=== PATIENT | male | born 1955 | race Caucasian/White ===

== ENCOUNTER 2022-03-15 15:18 | Observation (INO) | payer OTHER ==
[2022-03-15 15:41] VITALS: BP 131/91; PULSE 122; RESP 20; TEMP 97.9; BMI 30.3
[2022-03-15] MEDS ORDERED: SODIUM CHLORIDE 0.9% 500 ML INFUS.BAG IV ONE (16:05)
[2022-03-15 17:06] LABS: BASO % 0.5 % (0-2.0); EOS % 1.4 % (0-4.5); HEMOGLOBIN 14.5 GM/dL (11.7-16.9); MCH 31.4 pg (25.7-33.7); MCHC 33.8 g/dl (32.0-35.9); MEAN CELL VOLUME 92.9 fl (80-96); MEAN PLT VOLUME 7.5 fl (7.5-11.1); MONO % 8.6 % (3.8-10.2); NEUT % 66.5 % (42.8-82.8); PLATELET COUNT 232 10^3/uL (134-434); RBC 4.63 M/mm3 (4.00-5.60); RDW 13.1 % (11.9-15.9)
[2022-03-15 17:30] LABS: CALCIUM 9.6 mg/dL (8.5-10.1)
[2022-03-15 17:31] LABS: BLOOD UREA NITROGEN 23.7 mg/dL (7-18)
[2022-03-15 17:34] LABS: CREATININE 0.9 mg/dL (0.55-1.3); PHOSPHOROUS 2.6 mg/dL (2.5-4.9)
[2022-03-15 17:35] LABS: BILIRUBIN,TOTAL 0.5 mg/dL (0.2-1); TOT PROT 6.8 g/dl (6.4-8.2)
[2022-03-15 17:37] LABS: INR 1.17 (0.83-1.09); PROTHROMBIN TIME (PATIENT) 13.5 SEC (9.7-13.0)
[2022-03-15 17:39] LABS: ACTIVATED PTT 32.6 SECONDS (25.2-36.5); N-TERMINAL BNP 460.7 pg/ml (5-125)
== END 2022-03-15 23:36 | disposition left against medical advice (07) ==
LOC: JER 15:18 → JERBED 20:26
PROVIDERS: ADMIT Internal Medicine; ATTEND Internal Medicine
PROC: 3E0337Z Introduction of Electrolytic and Water Balance Substance into Peripheral Vein, Percutaneous Approach (ICD-10-PCS; principal; 2022-03-15)
DX: R00.0 Tachycardia, unspecified (principal); R42 Dizziness and giddiness; R00.2 Palpitations; I51.7 Cardiomegaly; M54.9 Dorsalgia, unspecified
CPT/HCPCS: 0241U-QW; 36415; 71045-TC-FY; 71275-TC; 80053; 83735; 83880; 84100; 84443; 84484; 85025; 85379; 85610; 85730; 93005; 93010; 99285-25; G0378; Q9967

== ENCOUNTER 2022-04-08 10:20 | Inpatient (IN) | payer OTHER ==
[2022-04-08 10:32] VITALS: BMI 32.1
[2022-04-08] MEDS ORDERED: SODIUM CHLORIDE 0.9% 500 ML INFUS.BAG IV ONE (11:34)
[2022-04-08 12:37] LABS: URINE APPEARANCE CLEAR; URINE BILIRUBIN NEGATIVE (NEGATIVE); URINE COLOR YELLOW; URINE GLUCOSE (UA) NEGATIVE (NEGATIVE); URINE KETONE NEGATIVE (NEGATIVE); URINE LEUK ESTERASE NEGATIVE (NEGATIVE); URINE NITRITE NEGATIVE (NEGATIVE); URINE PROTEIN NEGATIVE (NEGATIVE); URINE UROBILINOGEN 0.2 mg/dL (0.2-1.0)
[2022-04-08 12:38] LABS: BASO % 0.5 % (0-2.0); EOS % 0.6 % (0-4.5); HEMATOCRIT 44.9 % (35.4-49); HEMOGLOBIN 14.9 GM/dL (11.7-16.9); LYMPH % 16.4 % (8-40); MCH 30.8 pg (25.7-33.7); MCHC 33.2 g/dl (32.0-35.9); MEAN CELL VOLUME 92.8 fl (80-96); MONO % 6.7 % (3.8-10.2); NEUT % 75.8 % (42.8-82.8); PLATELET COUNT 267 10^3/uL (134-434); RBC 4.84 M/mm3 (4.00-5.60); RDW 13.3 % (11.9-15.9); WHITE BLOOD COUNT 8.7 K/mm3 (4.0-10.0)
[2022-04-08 12:49] LABS: ACTIVATED PTT 32.6 SECONDS (25.2-36.5); INR 1.07 (0.83-1.09); PROTHROMBIN TIME (PATIENT) 12.3 SEC (9.7-13.0)
[2022-04-08 12:57] LABS: ALBUMIN 4.1 g/dl (3.4-5.0); BLOOD UREA NITROGEN 21.6 mg/dL (7-18); CALCIUM 9.8 mg/dL (8.5-10.1)
[2022-04-08 13:00] LABS: CREATININE 0.9 mg/dL (0.55-1.3)
[2022-04-08 13:03] LABS: BILIRUBIN,TOTAL 0.4 mg/dL (0.2-1); TOT PROT 7.1 g/dl (6.4-8.2)
[2022-04-08 13:06] LABS: N-TERMINAL BNP 433.5 pg/ml (5-125)
[2022-04-08 13:16] LABS: COCAINE, UR NEGATIVE (NEGATIVE); OPIATES, URI NEGATIVE (NEGATIVE); PHENCYCLIDINE,URINE NEGATIVE (NEGATIVE); URINE BARBITURATES NEGATIVE (NEGATIVE)
[2022-04-08 13:20] LABS: METHADONE, UR NEGATIVE (NEGATIVE); URINE AMPHETAMINES NEGATIVE (NEGATIVE); URINE BENZODIAZEPINES NEGATIVE (NEGATIVE)
[2022-04-08] MEDS ORDERED: METOPROLOL TARTRATE 5 MG/5 ML VIAL IVPUSH ONE ×2 (13:26→14:25)
[2022-04-08] MEDS ORDERED: METOPROLOL TARTRATE 5 MG/5 ML VIAL ONE ×2 (13:58→14:28)
[2022-04-08 23:12] LABS: MAGNESIUM 2.3 mg/dL (1.8-2.4)
[2022-04-09] MEDS ORDERED: METOPROLOL TARTRATE 5 MG/5 ML VIAL IVPUSH PRN ×2 (07:49→15:47)
[2022-04-09 08:22] LABS: BASO % 0.7 % (0-2.0); EOS % 1.8 % (0-4.5); HEMATOCRIT 43.5 % (35.4-49); HEMOGLOBIN 14.6 GM/dL (11.7-16.9); LYMPH % 23.3 % (8-40); MCHC 33.5 g/dl (32.0-35.9); MEAN CELL VOLUME 92.4 fl (80-96); MONO % 8.5 % (3.8-10.2); NEUT % 65.7 % (42.8-82.8); PLATELET COUNT 240 10^3/uL (134-434); RBC 4.71 M/mm3 (4.00-5.60); RDW 13.7 % (11.9-15.9); WHITE BLOOD COUNT 5.6 K/mm3 (4.0-10.0)
[2022-04-09 08:44] LABS: ALBUMIN 3.6 g/dl (3.4-5.0); CALCIUM 9.4 mg/dL (8.5-10.1)
[2022-04-09 08:45] LABS: BLOOD UREA NITROGEN 17.6 mg/dL (7-18); MAGNESIUM 2.3 mg/dL (1.8-2.4)
[2022-04-09 08:47] LABS: CREATININE 0.7 mg/dL (0.55-1.3)
[2022-04-09 08:48] LABS: PHOSPHOROUS 2.6 mg/dL (2.5-4.9)
[2022-04-09 08:50] LABS: BILIRUBIN,TOTAL 0.9 mg/dL (0.2-1); TOT PROT 6.3 g/dl (6.4-8.2)
[2022-04-09] MEDS ORDERED: metoPROLOL SUCCINATE 25 MG TAB.SR.24H (FP) PO ONE (09:02)
[2022-04-09] MEDS ORDERED: metoPROLOL SUCCINATE 25 MG TAB.SR.24H (FP) PO SCH ×3 (10:00→22:00)
[2022-04-09] MEDS ORDERED: METOPROLOL TARTRATE 5 MG/5 ML VIAL ONE (12:01)
[2022-04-09] MEDS ORDERED: dilTIAZem HCL 50 MG/10 ML - 10 ML VIAL IVPUSH ONE (16:32)
[2022-04-09] MEDS ORDERED: APIXABAN 5 MG TABLET ONE (16:45)
[2022-04-09] MEDS ORDERED: dilTIAZem HCL 50 MG/10 ML - 10 ML VIAL ONE (16:45)
[2022-04-09] MEDS: APIXABAN 5 MG TABLET PO SCH ×2 (16:53→23:24)
[2022-04-09] MEDS ORDERED: dilTIAZem HCL 50 MG/10 ML - 10 ML VIAL IVPUSH PRN (20:52)
[2022-04-09] MEDS ORDERED: APIXABAN 5 MG TABLET PO SCH (22:00)
[2022-04-10] MEDS ORDERED: AMIODARONE HCL INJECTION 150 MG in DEXTROSE 5%-WATER - 100 ML IVPB ONE (00:37)
[2022-04-10] MEDS ORDERED: AMIODARONE IN DEXTROSE 150 MG/100 ML PREMIX BAG IV ONE (01:00)
[2022-04-10] MEDS ORDERED: AMIODARONE IN DEXTROSE,ISO-OSM 360 MG/200 ML BAG IV SCH ×2 (01:00→07:00)
[2022-04-10] MEDS: APIXABAN 5 MG TABLET PO SCH ×2 (09:21→21:42)
[2022-04-10 09:22] LABS: BASO % 0.6 % (0-2.0); HEMATOCRIT 43.8 % (35.4-49); HEMOGLOBIN 14.4 GM/dL (11.7-16.9); LYMPH % 22.6 % (8-40); MCH 30.4 pg (25.7-33.7); MCHC 32.8 g/dl (32.0-35.9); MEAN CELL VOLUME 92.4 fl (80-96); MEAN PLT VOLUME 8.4 fl (7.5-11.1); MONO % 8.3 % (3.8-10.2); NEUT % 66.5 % (42.8-82.8); PLATELET COUNT 244 10^3/uL (134-434); RBC 4.74 M/mm3 (4.00-5.60); RDW 13.1 % (11.9-15.9); WHITE BLOOD COUNT 6.5 K/mm3 (4.0-10.0)
[2022-04-10 09:44] LABS: CALCIUM 9.6 mg/dL (8.5-10.1)
[2022-04-10 09:45] LABS: ALBUMIN 3.4 g/dl (3.4-5.0); BLOOD UREA NITROGEN 19.7 mg/dL (7-18); MAGNESIUM 2.2 mg/dL (1.8-2.4)
[2022-04-10 09:48] LABS: CREATININE 0.9 mg/dL (0.55-1.3); PHOSPHOROUS 2.8 mg/dL (2.5-4.9)
[2022-04-10 09:50] LABS: BILIRUBIN,TOTAL 0.4 mg/dL (0.2-1); TOT PROT 5.9 g/dl (6.4-8.2)
[2022-04-10] MEDS: dilTIAZem HCL 30 MG TABLET PO SCH (18:09)
[2022-04-11] MEDS: dilTIAZem HCL 30 MG TABLET PO SCH ×2 (00:24→06:31)
[2022-04-11 08:26] LABS: BASO % 0.5 % (0-2.0); EOS % 1.8 % (0-4.5); HEMATOCRIT 41.1 % (35.4-49); LYMPH % 16.1 % (8-40); MCH 31.4 pg (25.7-33.7); MEAN CELL VOLUME 92.3 fl (80-96); MEAN PLT VOLUME 8.1 fl (7.5-11.1); MONO % 9.5 % (3.8-10.2); NEUT % 72.1 % (42.8-82.8); PLATELET COUNT 222 10^3/uL (134-434); RBC 4.45 M/mm3 (4.00-5.60); RDW 13.3 % (11.9-15.9); WHITE BLOOD COUNT 8.4 K/mm3 (4.0-10.0)
[2022-04-11 09:04] LABS: CALCIUM 9.4 mg/dL (8.5-10.1)
[2022-04-11 09:05] LABS: ALBUMIN 3.4 g/dl (3.4-5.0); BLOOD UREA NITROGEN 17.4 mg/dL (7-18)
[2022-04-11 09:08] LABS: CREATININE 0.9 mg/dL (0.55-1.3)
[2022-04-11 09:09] LABS: BILIRUBIN,TOTAL 0.8 mg/dL (0.2-1); TOT PROT 6.1 g/dl (6.4-8.2)
[2022-04-11] MEDS: APIXABAN 5 MG TABLET PO SCH (09:48)
[2022-04-11 09:50] VITALS: BP 112/53; PULSE 86; RESP 16; TEMP 98.1
== END 2022-04-11 14:12 | disposition home or self-care (01) | DRG 201 ==
LOC: JER 10:20 → JERBED 14:53 → OBSVTOIN 17:34 → J4W 04-09 17:37
PROVIDERS: ADMIT Internal Medicine; ATTEND Internal Medicine
DX: I48.92 Unspecified atrial flutter (principal); I71.21 Aneurysm of the ascending aorta, without rupture; I48.91 Unspecified atrial fibrillation; E66.3 Overweight; I47.1 Supraventricular tachycardia; Z68.32 Body mass index [BMI] 32.0-32.9, adult
CPT/HCPCS: 0241U-QW; 36415; 71046-TC-FY; 80053; 80061; 80307; 81003; 83036; 83735; 83880; 84100; 84439; 84443; 84484; 85025; 85379; 85610; 85730; 87086; 93005; 93010; 93306-TC; 99285-25; G0378; J0282